=== PATIENT | female | born 1995 ===

== ENCOUNTER 2018-03-08 15:15 | Inpatient (IN) | payer OTHER ==
[~2018-03-08] VITALS: Ht 165.1 cm; Wt 62.1 kg
== END 2018-03-19 13:56 | DRG 775 ==
LOC: OB/GYN 03-17 05:46 → LDR 03-17 05:46 → OB/GYN 03-17 11:50 → LDR 03-20 15:15
PROC: 10E0XZZ Delivery of Products of Conception, External Approach (ICD-10-PCS; principal; 2018-03-17)
PROC: 0W8NXZZ Division of Female Perineum, External Approach (ICD-10-PCS; 2018-03-17)
PROC: 4A033R1 Measurement of Arterial Saturation, Peripheral, Percutaneous Approach (ICD-10-PCS; 2018-03-17)
PROC: 4A1HXCZ Monitoring of Products of Conception, Cardiac Rate, External Approach (ICD-10-PCS; 2018-03-17)
DX: O99.824 Streptococcus B carrier state complicating childbirth (principal); Z3A.39 39 weeks gestation of pregnancy; Z37.0 Single live birth